=== PATIENT | female | born 1935 | race Caucasian/White ===

== ENCOUNTER 2016-05-19 15:00 | Inpatient (IN) | payer MEDICARE ==
[~2016-05-19] VITALS: Ht 160 cm; Wt 90.9 kg
--- NOTE | ~2016-05-19 | OR ---
PATIENT'S NAME: SEAMUS ANTUNEZ [facility] AGE: 80 Y [address] ROOM: [place] [address] LOCATION: [facility] ADMIT DATE: 05/26/2016 OR/Procedure Report DISCHARGE DATE: FAMILY PHYSICIAN: Ursula Muse MD ATTENDING PHYSICIAN: ULI JASMINE SURGEON: Uli Jasmine MD SECURITY ROVER: 1. HALLEY Nixon. 2. Gume Joshi CST/PRODUCT CRAFTSMAN. 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 OPERATION: Right total hip arthroplasty. ANESTHESIA: General endotracheal anesthesia plus subcutaneous and periarticular local anesthesia (ropivacaine with epinephrine and Toradol). ESTIMATED BLOOD LOSS: Approximately 200 mL. DRAIN: None. SPECIMEN: Femoral head to pathology (rule out malignancy, rule out avascular necrosis). COMPLICATIONS: None. IMPLANTS: 1. [place] Trident Tritanium size 52 mm hemispherical, uncemented, acetabular shell with 1 dome hole cover and no screws. 2. [place] X3 neutral acetabular polyethylene liner with 36 mm inner diameter. 3. DePuy [place] size 6 high offset, uncemented femoral component. 4. 36 mm diameter metallic femoral head with +8.5 mm neck length. INDICATION FOR SURGERY: Seamus Antunez is a 80-year-old female who presents with advanced right hip degenerative joint disease (possibly secondary to avascular necrosis) and associated severely compromised activities of daily living. The patient has decided to proceed with hip replacement after having been thoroughly counseled regarding the associated risks, benefits, and limitations. We have specifically reviewed the risks and implications of infection, deep venous thrombosis, pulmonary embolism, mortality, PATIENT'S NAME: [facility] AGE: 80 Y [address] ROOM: [address] [address] LOCATION: [facility] ADMIT DATE: 05/26/2016 OR/Procedure Report DISCHARGE DATE: FAMILY PHYSICIAN: Ursula Muse MD ATTENDING PHYSICIAN: ULI JASMINE neurovascular complications, blood transfusion (and associated potential for disease transmission or transfusion reaction), stiffness, instability, leg length discrepancy, mechanical deterioration of the components (due to wear and to loosening), and the potential need for revision. DESCRIPTION OF PROCEDURE: The patient was positioned in a lateral decubitus position with the right side up after administration of anesthesia and prophylactic antibiotics. An axillary roll was placed and the non-operative leg was well padded. The pelvis was locked perpendicularly to the floor on a pegboard. The right hip and entire operative extremity were prepped and draped with vigilant sterile technique. The patient's name as well as the intended operative side and procedure were confirmed with a verbal time-out involving myself, the circulating nurse, the scrub nurse, and the anesthesiologist. The right hip was approached through a standard posterolateral incision. The fascia daksha and the gluteus theresa fascia were sharply divided in line with the overlying skin incision. The sciatic nerve was identified and was vigilantly protected throughout the entire case. The short external rotators and posterior capsule were divided from their respective femoral insertions and tagged with four #1 Ethibond sutures for later repair. The hip was posteriorly dislocated with combined flexion, adduction, and internal rotation. The femoral neck osteotomy was performed with an oscillating saw. Inspection of the femoral head demonstrated high-grade partial-thickness articular cartilage loss involving 80% of its weightbearing surface. There was no savannah femoral head collapse (despite the fact that the preoperative MRI had suggested the presence of a potential avascular necrosis). It should be noted that the patient had quite thin dermis and very loose subcutaneous adipose tissue and attenuated fascia. Overall connective tissue quality was mediocre. The patient was noted to be moderately severely osteopenic as well. Circumferential acetabular exposure was obtained. Examination of acetabulum demonstrated a large effusion consisting of benign- appearing translucent synovial fluid. There were 2 loose bodies (measuring approximately 5 mm in diameter each) at the inferior aspect of the joint space. There was extensive degenerative tearing of the inner perimeter of the acetabular labrum between the 2 o'clock and 10 o'clock positions. There was no dysplasia. Remnants of the acetabular labrum were sharply thoroughly excised. The acetabulum was sequentially progressively reamed up to 51 mm with hemispherical power reamers. The final acetabular shell was impacted into position in 20 degrees of anteversion and 45 degrees of inclination. An excellent press-fit was obtained. No supplemental dome screw fixation was PAT[facility]'S NAME: [facility] AGE: 80 Y [address] ROOM: [id number] [place], [place] [address] LOCATION: [facility] ADMIT DATE: 05/26/2016 OR/Procedure Report DISCHARGE DATE: FAMILY PHYSICIAN: Ursula Muse MD ATTENDING PHYSICIAN: ULI JASMINE. A neutral trial liner was inserted. Attention was next focused upon femoral preparation. The femoral canal initiator was utilized. The femoral canal was reamed by hand to a size 4 and subsequently on power to a size 6. The size 6 reamer was the 1st reamer to decently engage the endosteal cortex for the proximal femur. The femoral canal was subsequently sequentially progressively broached up to a size 6. The size 6 broach obtained excellent axial and rotational stability. Trial reductions with the above specified construct yielded acceptable stability and acceptable reproduction of leg length and offset. All trial components were removed. The final acetabular liner was inserted with excellent circumferential visualization of its locking mechanism to assure adequate deployment. The final femoral component was impacted into position. The femoral component achieved excellent axial and rotational stability. The trunnion of the femoral component was vigilantly protected prior to placement of the femoral head. The trunnion of the femoral component was thoroughly cleaned and dried prior to placement of the femoral head. The incision was thoroughly irrigated with bacteriostatic pulsatile saline lavage multiple times throughout the case. The entire joint space was thoroughly inspected and thoroughly irrigated to assure that there was no residual debris of any sort. A final reduction was then performed. After final reduction, the hip could be firmly externally rotated in full extension and zero degrees of abduction without anterior subluxation. In neutral rotation and zero degrees of abduction, the hip could be firmly flexed to 120 degrees without instability. At 90 degrees of flexion and zero degrees abduction, the hip could be internally rotated to 70 degrees. It should be noted that there was significant soft tissue laxity with shorter neck lengths. I acknowledged that this neck length lengthen the patient moderately, but I felt (based upon trial reductions) that this degree of lengthening was necessary in order to achieve acceptable stability. This patient has an attenuated connective tissue and is, therefore, at increased risk for instability before there was any hint of posterior subluxation. The posterior capsule and short external rotators were repaired through two drill holes in the posterior aspect of the greater trochanter. The fascia daksha and gluteus theresa fascia were closed with multiple simple and [id number]-[id number] interrupted # 1 Ethibond and #1 Vicryl sutures. Subcutaneous tissues were thoroughly re-irrigated with bacteriostatic pulsatile saline lavage. Subcutaneous tissues were re-approximated with simple buried interrupted #0 Vicryl sutures. The skin was closed with PATIENT'S NAME: SE[facility]US [facility] AGE: 80 Y [address] ROOM: [place] [address] LOCATION: [facility] ADMIT DATE: 05/26/2016 OR/Procedure Report DISCHARGE DATE: FAMILY PHYSICIAN: Ursula Muse MD ATTENDING PHYSICIAN: ULI JASMINE superficial buried interrupted 2-0 Vicryl sutures followed by a running subcuticular 3-0 Monocryl suture, followed by Octylseal, followed by Steri- Strips with benzoin, followed by an occlusive Mepilex dressing. There were no intra-operative complications. It should be noted that the physician's hearing and speech assistant played an active, integral role throughout this entire operation. By providing expert retraction, they greatly facilitated and expedited safe and effective exposure of the proximal femur and acetabulum for preparation and implantation of the components. They were also actively involved in the patient's positioning, prepping and draping, as well as wound closure. MD ESTEBAN SCHUMACHER/farazl /[id number] d: 05/26/168 t: 06/03/16 0752, OPERATIVE SUMMARY
--- NOTE | ~2016-05-19 | DS ---
PATIENT'S NAME: HARMONY [facility] AGE: 80 Y [address] ROOM: [place] [address] LOCATION: [facility] ADMIT DATE: 05/26/2016 Discharge Summary DISCHARGE DATE: 05/29/2016 FAMILY PHYSICIAN: Ursula Muse MD ATTENDING PHYSICIAN: Phong Palencia PRIMARY DIAGNOSIS: Osteoarthritis, right hip. SECONDARY DIAGNOSES: 1. Hypertension. 2. Hyperlipidemia. 3. Chronic kidney disease stage III. 4. History of transient ischemic attack. 5. Incontinence of urine. PROCEDURE PERFORMED: Right total hip arthroplasty. HISTORY: The patient is a 80-year-old female, who presents with advanced right hip degenerative joint disease and associated severely compromised activities of daily living. The patient has decided to proceed with total right hip arthroplasty after having been thoroughly counseled regarding the risks, benefits, limitations and alternatives. Please refer to the outpatient clinic notes and admission history and physical for this patient. HOSPITAL COURSE: The patient underwent a total right hip arthroplasty on 05/26/2016 without complications. General endotracheal anesthesia plus subcutaneous and periarticular local anesthesia was utilized. The patient received 24 hours of perioperative prophylactic antibiotics and remained hemodynamically stable, neurovascularly intact throughout the entire hospital course. The postoperative prophylactic deep venous thrombosis prophylaxis consisted of Xarelto 10 mg, early mobilization and pneumatic compression devices. Daily physical therapy for gait training, transfer training, and reinforcement of hip dislocation precautions were received. The patient progressed well in physical therapy. On the date of discharge, 05/29/2016, the incision at the hip was healing well and showed no signs of infection. DISPOSITION: Home. DISCHARGE ACTIVITY: The patient is to bear weight as tolerated with strict hip dislocation precautions as instructed. There are to be no dressing changes. Dr. Palencia is to be notified immediately if there is any increased pain, fevers, chills, erythema or drainage. DISCHARGE MEDICATIONS: 1. Xarelto 10 mg, take 1 tablet p.o. daily for DVT prevention. PATIENT'S NAME: SEAMUS [facility] AGE: 80 Y [address] ROOM: [place] [address] LOCATION: [facility] ADMIT DATE: 05/26/2016 Discharge Summary DISCHARGE DATE: 05/29/2016 FAMILY PHYSICIAN: Ursula Muse MD ATTENDING PHYSICIAN: Phong Palencia 2. Oxycodone 5, take 1-2 tablets p.o. every 4 hours as needed for pain. FOLLOWUP: Followup appointment is to be with Dr. Palencia scheduled to be in 1 week subsequent to dismissal from the hospital for initial postoperative evaluation. HALLEY ZEPEDA FOR MD CORI SCHUMACHERB/aaron /[id number] d: 06/10/16 044 t: 06/24/16 0716, DISCHARGE SUMMARY
[~2016-05-19 15:00] MED LIST: ALEVE220 MG PO; CALCIUM 600 +1 EAC6 PO; PRILOSEC20 MG PO; PRINIVIL (ZESTR20 MG PO; VITAMIN E400 UNI2 PO; ZOCOR20 MG PO
--- NOTE | 2016-05-26 16:06 | NUR ---
Significant Event: Received from PACU at 1320. 3rd hourly at 1905. Up to commode x2 and up in chair with 2 assist and walker. Dressing dry and intact. CSM WNL. General anesthetic. Oxycodone 5mg at 1213. Taking po. Voiding Follow up:
--- NOTE | 2016-05-27 03:50 | NUR ---
Significant Event: Alert and oriented X3. Sats at 95% on 1L 02, tried to wean to RA but desats to upper 80's while sleeping. Mepilex dressing to R) hip is CDI. Ice to hip. Doppler used for distal pulse, able to palpate last two CSM checks. LR @ 80 ml/hr. Voiding without difficulty. Up to bedside commode with 1 assist, gait belt and walker. Rates pain 4/10. Oxycodone and tylenol given. Follow up: Next ATB at 1000.
--- NOTE | 2016-05-27 10:00 | NUR ---
[facility] called to let me know they will not have a short stay skilled bed until possibly next week so would not be able to take patient. 1005 Introduced self/role to patient, her daughter Estelle and Estelle's friend. Let them know about [facility]. Explained our goal would be for patient to go home but I would be the one to assist with further placement. Patient would like to go home but has some concerns which we talked about. 1. Getting out of the bed. Explained PT/OT would work on that skill before going home. Also she could sleep in her recliner for a week or two until she was stronger. She had not thought of that, thought the recliner would work well. 2. daughter was concerned about taking a bath/shower. Patient stated she has taken sponge baths before and could that for awhile too. No other concerns about returning home. Will stay here until with the hopes of going home. I will follow up with them Thursday afternoon to see how she is progressing, then see if I need to work on a different discharge plan other then home. They agreed. Daughter also reported her [id number] had offered to help out as needed for a short term basis too. 1010 Evan Courtney, updated.
--- NOTE | 2016-05-27 16:56 | NUR ---
Significant Event:Up to BR/Chair with walker and one assist. Dressing dry and intact. CSM WNL. Routine tylenol ES. Oxycodone 5mg at 1454. Planning home tomorrow Follow up:
--- NOTE | 2016-05-28 02:34 | NUR ---
Significant Event: Alert and oriented x3. Desats to 87% while sleeping, placed on 1L 02. Lungs clear and diminished. Mepilex dressing to R) hip is CDI. 1+ distal pulse. Pt has c/o of numbness to to R) ulnar side of hand, extending from 5th digit to wrist. IV's SL'd. Up to bathroom several times with 1 assist, gait belt and walker. Pt has difficulties getting self in/out of bed. Will stay another night. Pt concerned about going home, lives at home by self. Oxycodone and tylenol given for pain. Follow up:
--- NOTE | 2016-05-28 10:00 | NUR ---
Spoke to Giuseppe with therapies. He thought patient should be able to go home. Suggested I talk to patient after joint class as they will be working on a lot of activities. 1120 Followed up with patient about discharge plans and that [facility] does have an opening now. She will call her daughter and I can come back in 5 minutes. 1125 Patient stated she will go home. Her zlcvj-ndaocjqg-hk-law can stay with her at nights and she can sleep in the recliner. Will call [facility] to give up the bed. 1130 Spoke to Mariluz and [facility] and released the bed.
--- NOTE | 2016-05-28 17:41 | NUR ---
Significant Event: mepilex dressing to r) hip c/d/i. csm assessments wnl to r) lower extremity. ambulates to bathroom and up to chair with 1 assist, use of walker/gait belt, tolerates well. pain well controlled with roxicodone 1 tab given last at 1513 and routine tylenol extra strength 2 tabs at 1730, rates pain 4-2 on pain scale. received Milk of Magnesium for constipation, with good results. ice bag applied to r) hip, knee high rosa hose and foot pumps on. pleasant and cooperative with cares. Follow up:
--- NOTE | 2016-05-29 04:56 | NUR ---
Significant Event: A/O X 3. IV SALINE LOCK INTACT. ICE BAG TO RIGHT HIP. MEPILEX DRSG RIGHT HIP DRY-INTACT. PILLOWS BETWEEN KNEES. BETHANY HOSE OFF AT HS. BILATERAL FOOT PUMPS ON FEET. SAT UP IN RECLINER CHAIR EARLIER EVENING. AMBULATED TO , ONE ASSIST, GAITBELT AND WALKER, GOOD TOLERANCE. ON ROUTINE SCHEDULED TYLENOL X STRENGTH, PAIN RATED 3. POSSIBLE TO GO HOME TODAY. HAD 3 BM'S THIS SHIFT MODERATE AMOUNT. REFUSE COLACE AND MIRLAX AT HS. IS USAGE 1750. Follow up:
[2016-05-29] MEDS ORDERED: COLACE100 MG PO (10:38)
[2016-05-29] MEDS ORDERED: MIRALAX17 GM PO (10:40)
[2016-05-29] MEDS ORDERED: XARELTO10 MG PO (10:41)
[2016-05-29] MEDS ORDERED: ROXICODONE 5MG (5 MG PO (10:43)
--- NOTE | 2016-05-29 13:17 | NUR ---
YUSRA DOING WELL. RX SLIP, RETURN APPT CARD, DISMISSAL TEACHING, USE OF BETHANY HOSE, WOUND CARE, DVT PRECAUTIONS, HIP DISLOCATION PRECUATIONS, IS USE, ALL GIVEN TO PATIENT. PATIENT VERBALIZES UNDERSTANDING OF INSTRUCTIONS DOES DAUGHTER. TO FRONT DOOR WITH TA TO MEET DAUGHTER AND SONIN LAW.
== END 2016-05-29 13:20 | disposition disaster alternative care site (69) | DRG 470 ==
LOC: G3N 05-26 06:12
PROVIDERS: ADMIT Orthopaedic Surgery
PROC: 0SR902A Replacement of Right Hip Joint with Metal on Polyethylene Synthetic Substitute, Uncemented, Open Approach (ICD-10-PCS; principal; 2016-05-26)
DX: M16.11 Unilateral primary osteoarthritis, right hip (principal); M87.9 Osteonecrosis, unspecified; N18.3 Chronic kidney disease, stage 3 (moderate); E78.5 Hyperlipidemia, unspecified; Z86.73 Personal history of transient ischemic attack (TIA), and cerebral infarction without residual deficits; I12.9 Hypertensive chronic kidney disease with stage 1 through stage 4 chronic kidney disease, or unspecified chronic kidney disease; Z87.891 Personal history of nicotine dependence; E66.9 Obesity, unspecified; Z68.35 Body mass index [BMI] 35.0-35.9, adult
CPT/HCPCS: C1776; J0690; J1885; J2001; J2795; J3010; J7030; J7120